=== PATIENT | female | born 1950 | race Caucasian/White ===

== ENCOUNTER 2021-05-10 08:49 | Outpatient (CLI) | payer MEDICARE, OTHER | END 2021-05-10 08:50 | disposition home or self-care (01) | LOC: CSHCT 08:49 | PROVIDERS: ATTEND Internal Medicine Hematology & Oncology | DX: C18.2 Malignant neoplasm of ascending colon (principal); R19.09 Other intra-abdominal and pelvic swelling, mass and lump; K76.9 Liver disease, unspecified | CPT/HCPCS: 71260; 74177 ==

== ENCOUNTER 2021-08-02 08:37 | Outpatient (CLI) | payer MEDICARE, OTHER ==
[2021-08-02 10:01] LABS: Estimated GFR-MDRD - POC Greater than 90
[2021-08-02] MEDS ORDERED: Iopamidol 300 61% 100 ML VIAL FS ONE (10:55)
== END 2021-08-02 08:38 | disposition home or self-care (01) ==
LOC: CSHCT 08:37
PROVIDERS: ATTEND Internal Medicine Hematology & Oncology
DX: C18.2 Malignant neoplasm of ascending colon (principal); R19.00 Intra-abdominal and pelvic swelling, mass and lump, unspecified site; K76.9 Liver disease, unspecified; K66.9 Disorder of peritoneum, unspecified
CPT/HCPCS: 71260; 74177; 82565; Q9967